=== PATIENT | female | born 1955 | race Caucasian/White ===

== ENCOUNTER → 2017-10-29 | Outpatient (CLI) | payer BC ==
[~2017-10-29] MED LIST: LISI20TA29 PO; ONDA4TAB PO; VENL150C61 PO
--- NOTE | 2017-10-29 16:16 | RADIOLOGY IMAGING REPORT ---
FACILITY: [facility] [place] PATIENT NAME: Ermelinda Moore : 1955 MR: [id number] V: [id number] EXAM DATE: ORDERING PHYSICIAN: DOMI ALVARADO TECHNOLOGIST: Location: [facility] - [place], [place] Patient: Ermelinda Moore : 1955 Visit/Account:[id number] Date of Sevice: 10/29/2017 Exam type: CHEST PA AND LAT History: Chronic cough, shortness of breath Comparison: January 16, 2013. Findings: The lungs are free of acute effusions, infiltrates or edema. No evidence of a pneumothorax or pneumo mediastinum. Cardiac silhouette is normal in size. Trachea is in midline. IMPRESSION: 1. No acute cardiac pulmonary process is seen Report Dictated By: Chantell Witt MD at 10/29/2017 4:11 PM Report E-Signed By: Chantell Witt MD at 10/29/2017 4:12 PM WSN:[email or web address]
== END ==
LOC: RAD 15:01
PROVIDERS: ATTEND Family Medicine
DX: R05 Cough (principal)
CPT/HCPCS: 71046

== ENCOUNTER → 2018-12-06 | Outpatient (CLI) | payer BC | LOC: RESP 00:51 | PROVIDERS: ATTEND Internal Medicine | DX: J44.9 Chronic obstructive pulmonary disease, unspecified (principal) | CPT/HCPCS: 94060; 94726; 94729 ==